=== PATIENT | male | born 1975 | race Caucasian/White ===

== ENCOUNTER 2017-12-24 02:38 | Emergency (ER) | payer SELFPAY ==
[2017-12-24 03:27] LABS: Absolute Lymphocytes (CBC) 2.5 K/uL (0.7-4.9); Absolute Neutrophil 9.3 K/uL (1.8-8.0); Basophils % 0.8 % (0-1.3); Eosinophils % 0.8 % (0-4.4); Hematocrit 45.1 % (39.6-49.0); MCH 30.1 pg (27.0-35.0); MCV 89.8 fL (80-100); MPV 8.5 fL (7.6-11.3); Monocytes % 7.6 % (3.3-12.3); RBC Red Blood Cell Count 5.02 M/uL (4.33-5.43)
[2017-12-24 03:33] LABS: Bicarbonate 22 mEq/L (21-31); Glucose Level 117 mg/dL (65-120); Lipase 26 U/L (22-51); Potassium 3.1 mEq/L (3.6-5.0); Sodium Level 133 mEq/L (135-145)
[2017-12-24 03:36] LABS: Protime INR 1.04
[2017-12-24 03:39] LABS: ALT/SGPT 36 IU/L (10-60); AST/SGOT 23 IU/L (10-42); Albumin 4.3 g/dL (3.2-5.5); Alkaline Phosphatase 79 IU/L (42-121); BUN Blood Urea Nitrogen 11 mg/dL (6-20); Bilirubin Direct 0.1 mg/dL (0-0.2); Bilirubin Total 0.4 mg/dL (0.3-1.2); Creatine Phosphokinase 148 IU/L (22-269); Magnesium 1.6 mg/dL (1.8-2.5); Protein, Total 7.4 g/dL (6.0-8.3)
[2017-12-24 03:40] LABS: Alcohol Serum/Plasma 25 mg/dl
[2017-12-24 03:44] LABS: CKMB Creatine Kinase MB 1.5 ng/ml (0.3-4.0)
[2017-12-24] MEDS ORDERED: POTASSIUM CL SA 10 MEQ TAB PO ONE (03:48)
--- NOTE | 2017-12-24 04:00 | ER ---
Nurse's Notes [facility] Name: Magen Solorzano Age: 42 yrs Sex: Male : 1975 Arrival Date: 12/24/2017 Time: 02:42 Bed 8 Private MD: Diagnosis: Syncope and collapse;Hypokalemia;Low back pain;Hypomagnesemia Presentation: 12/24 02:40 Presenting complaint: Patient states: that he was sitting in and got nausea, the next fc thing he remembers is his friends standing around him. Friend states that he was just "spaced out" and not talking x 10 minutes. She then got him into car to bring him here and he became very nauseated and started to vomit. Pt states that he has been taking a lot of OTC pain medications for his back pain. Also has had nasal and chest congestion that started yesterday,. Transition of care: patient was not received from another setting of care. Onset of symptoms was December 24, 2017 at 02:00. Initial Sepsis Screen: Does the patient meet any 2 criteria? HR > 90 bpm. Yes Does the patient have a suspected source of infection? No. Patient's initial sepsis screen is negative. Care prior to arrival: None. 02:40 Method Of Arrival: Wheelchair 02:40 Acuity: VICKI 3 fc Historical: - Allergies: 03:01 No Known Allergies; fc - Home Meds: 03:01 None [Active]; fc - PMHx: 03:01 Back pain; fc - PSHx: 03:01 None; fc - Immunization history:: Last tetanus immunization: unknown. - Social history:: Smoking status: Patient uses tobacco products, smokes one pack cigarettes per day. Patient/guardian denies using alcohol, street drugs. - Family history:: not pertinent. Screenin:58 Abuse screen: Denies threats or abuse. Nutritional screening: No deficits noted. fc Tuberculosis screening: No symptoms or risk factors identified. Fall Risk None identified. Assessment: 03:00 General: Appears in no apparent distress. comfortable, Behavior is calm, cooperative, ao appropriate for age. Pain: Complains of pain in back Pain does not radiate. Pain currently is 8 out of 10 on a pain scale. Neuro: Level of Consciousness is awake, alert, obeys commands, Oriented to person, place, time, situation, Appropriate for age Moves all extremities. Speech is normal, Facial symmetry appears normal. Cardiovascular: Capillary refill < 3 seconds Patient's skin is warm and dry. Respiratory: Airway is patent Respiratory effort is even, unlabored, Respiratory pattern is regular, symmetrical. GI: Abdomen is round obese, Bowel sounds present X 4 quads. : No signs and/or symptoms were reported regarding the genitourinary system. EENT: No signs and/or symptoms were reported regarding the EENT system. Derm: No signs and/or symptoms reported regarding the dermatologic system. Musculoskeletal: No signs and/or symptoms reported regarding the musculoskeletal system. 04:10 Reassessment: Patient appears in no apparent distress at this time. Patient and/or ao family updated on plan of care and expected duration. Pain level reassessed. Patient is alert, oriented x 3, equal unlabored respirations, skin warm/dry/pink. Patient to be discharge. Patient currently getting Magnesium IV for an hour. Patient to be discharge after magnesium is comlete. 05:10 Reassessment: Patient appears in no apparent distress at this time. Patient and/or ao family updated on plan of care and expected duration. Pain level reassessed. Patient is alert, oriented x 3, equal unlabored respirations, skin warm/dry/pink. Waiting on Mag to be done. 05:37 Reassessment: Dc Instructions given to patient. Patient agrees with the POC and to ao follow up with PCP. Vital Signs: 02:40 BP 120 / 68; Pulse 96; Resp 18; Temp 97.7(O); Pulse Ox 96% on R/A; Weight 99.79 kg (R); Height 6 ft. 0 in. (182.88 cm) (R); Pain 9/10; 03:51 BP 122 / 66; Pulse 94; Resp 16; Pulse Ox 97% on R/A; ao 03:54 BP 124 / 82; ao 04:51 BP 117 / 76; Pulse 84; Resp 20; Pulse Ox 98% on R/A; ao 05:37 BP 114 / 78; Pulse 92; Resp 16; Pulse Ox 96% ; ao 02:40 Body Mass Index 29.84 (99.79 kg, 182.88 cm) ED Course: 02:40 Arm band placed on Patient placed in an exam room, on a stretcher. 02:42 Patient arrived in ED. al2 02:46 Olson, Tejinder, RN is Primary Nurse. ao 02:48 Carl Pereira MD is Attending Physician. [facility] 02:57 Triage completed. 02:58 Patient has correct armband on for positive identification. Bed in low position. Call fc light in reach. Side rails up X2. 02:58 No provider procedures requiring assistance completed. fc 03:00 Inserted saline lock: 18 gauge in right antecubital area, using aseptic technique. cc Blood collected. 03:00 Initial lab(s) drawn, by me, sent to lab. cc 03:10 X-ray completed. Portable x-ray completed in exam room. Patient tolerated procedure kw well. 03:11 XRAY Chest (1 view) In Process Unspecified. EDMS 04:00 Jase Christine MD is Referral Physician. laine 05:39 IV discontinued, intact, bleeding controlled, No redness/swelling at site. Pressure ao dressing applied. 07:31 CT Head Brain wo Cont In Process Unspecified. EDMS Administered Medications: 03:51 Drug: Potassium Chloride 40 mEq Route: PO; ao 04:49 Follow up: Response: No adverse reaction ao 04:10 Drug: Magnesium Sulfate 1 grams Route: IVPB; Infused Over: 1 hrs; Site: right ao antecubital; 05:40 Follow up: IV Status: Completed infusion ao Outcome: 04:00 Discharge ordered by . laine 05:38 Discharged to home ambulatory. ao 05:38 Condition: stable 05:38 Discharge instructions given to patient, Instructed on discharge instructions, follow up and referral plans. Demonstrated understanding of instructions, follow-up care, medications, Prescriptions given X 1. 05:39 Patient left the ED. ao Signatures: Dispatcher [employer] EDWA Carl Pereira MD MD cha Chretien, Felicia, RN RN Nataliia Odonnell Chelsea Tejinder Olson, LEON RN Maria Victoria Granado al2
--- NOTE | 2017-12-24 04:01 | EDPHYS ---
Physician Documentation [facility] Name: Magen Solorzano Age: 42 yrs Sex: Male : 1975 Arrival Date: 12/24/2017 Time: 02:42 Bed 8 Private MD: ED Physician Carl Pereira HPI: 12/24 03:52 This 42 yrs old Male presents to ER via Wheelchair with complaints of laine POSSIBLE SEIZURE. 03:52 seizure like activity. The patient presents after having a single isolated seizure, laine that lasted 20 second(s). Character of seizure(s): Loss of consciousness: the patient did not lose consciousness, Motor activity: generalized, Incontinence: none, Apnea: the patient did not experience apnea, Circulation: the patient did not experience evidence of pulse disturbance. Seizure onset: just prior to arrival. Context: the seizure(s) was witnessed, by a bystander, by family, occurred at work. Seizure Hx: the patient has no previous seizure history. Associated injury: The patient did not suffer any apparent associated injury. Onset: The symptoms/episode began/occurred just prior to arrival. Severity of symptoms: At their worst the symptoms were mild moderate in the emergency department the symptoms have improved markedly. Historical: - Allergies: 03:01 No Known Allergies; fc - Home Meds: 03:01 None [Active]; fc - PMHx: 03:01 Back pain; fc - PSHx: 03:01 None; fc - Immunization history:: Last tetanus immunization: unknown. - Social history:: Smoking status: Patient uses tobacco products, smokes one pack cigarettes per day. Patient/guardian denies using alcohol, street drugs. - Family history:: not pertinent. ROS: 03:52 Constitutional: Negative for fever, chills, and weight loss, Eyes: Negative for injury, laine pain, redness, and discharge, ENT: Negative for injury, pain, and discharge, Neck: Negative for injury, pain, and swelling, Cardiovascular: Negative for chest pain, palpitations, and edema, Respiratory: Negative for shortness of breath, cough, wheezing, and pleuritic chest pain, Abdomen/GI: Negative for abdominal pain, nausea, vomiting, diarrhea, and constipation, Back: Negative for injury and pain, : Negative for injury, bleeding, discharge, and swelling, MS/Extremity: Negative for injury and deformity, Skin: Negative for injury, rash, and discoloration, Psych: Negative for depression, anxiety, suicide ideation, homicidal ideation, and hallucinations, Allergy/Immunology: Negative for hives, rash, and allergies, Endocrine: Negative for neck swelling, polydipsia, polyuria, polyphagia, and marked weight changes, Hematologic/Lymphatic: Negative for swollen nodes, abnormal bleeding, and unusual bruising. 03:52 Neuro: Positive for seizure activity, weakness. Exam: 03:52 Constitutional: This is a well developed, well nourished patient who is awake, alert, laine and in no acute distress. Head/Face: Normocephalic, atraumatic. Eyes: Pupils equal round and reactive to light, extra-ocular motions intact. Lids and lashes normal. Conjunctiva and sclera are non-icteric and not injected. Cornea within normal limits. Periorbital areas with no swelling, redness, or edema. ENT: Nares patent. No nasal discharge, no septal abnormalities noted. Tympanic membranes are normal and external auditory canals are clear. Oropharynx with no redness, swelling, or masses, exudates, or evidence of obstruction, uvula midline. Mucous membranes moist. Neck: Trachea midline, no thyromegaly or masses palpated, and no cervical lymphadenopathy. Supple, full range of motion without nuchal rigidity, or vertebral point tenderness. No Meningismus. Chest/axilla: Normal chest wall appearance and motion. Nontender with no deformity. No lesions are appreciated. Cardiovascular: Regular rate and rhythm with a normal S1 and S2. No gallops, murmurs, or rubs. Normal PMI, no JVD. No pulse deficits. Respiratory: Lungs have equal breath sounds bilaterally, clear to auscultation and percussion. No rales, rhonchi or wheezes noted. No increased work of breathing, no retractions or nasal flaring. Abdomen/GI: Soft, non-tender, with normal bowel sounds. No distension or tympany. No guarding or rebound. No evidence of tenderness throughout. Back: No spinal tenderness. No costovertebral tenderness. Full range of motion. Male : Normal genitalia with no discharge or lesions. Skin: Warm, dry with normal turgor. Normal color with no rashes, no lesions, and no evidence of cellulitis. MS/ Extremity: Pulses equal, no cyanosis. Neurovascular intact. Full, normal range of motion. Neuro: Awake and alert, GCS 15, oriented to person, place, time, and situation. Cranial nerves II-XII grossly intact. Motor strength 5/5 in all extremities. Sensory grossly intact. Cerebellar exam normal. Normal gait. Psych: Awake, alert, with orientation to person, place and time. Behavior, mood, and affect are within normal limits. 03:52 Musculoskeletal/extremity: DVT Exam: No signs of deep vein thrombosis. no pain, no laine swelling, no tenderness, negative Homans' sign noted on exam, no appreciated bluish discoloration, no erythema, no increased warmth. Vital Signs: 02:40 BP 120 / 68; Pulse 96; Resp 18; Temp 97.7(O); Pulse Ox 96% on R/A; Weight 99.79 kg (R); fc Height 6 ft. 0 in. (182.88 cm) (R); Pain 9/10; 03:51 BP 122 / 66; Pulse 94; Resp 16; Pulse Ox 97% on R/A; ao 03:54 BP 124 / 82; ao 04:51 BP 117 / 76; Pulse 84; Resp 20; Pulse Ox 98% on R/A; ao 05:37 BP 114 / 78; Pulse 92; Resp 16; Pulse Ox 96% ; ao 02:40 Body Mass Index 29.84 (99.79 kg, 182.88 cm) MDM: 02:48 Patient medically screened. [facility] 03:52 Data reviewed: vital signs, nurses notes, lab test result(s), EKG, radiologic studies, [facility] CT scan, plain films. 12/24 02:49 Order name: Basic Metabolic Panel; Complete Time: 05:25 laine 12/24 02:49 Order name: BNP; Complete Time: 03:58 [facility] 12/24 02:49 Order name: CBC with Diff; Complete Time: 03:38 12/24 02:49 Order name: Ckmb; Complete Time: 05:25 12/24 02:49 Order name: CPK; Complete Time: 05:25 laine 12/24 02:49 Order name: LFT's; Complete Time: 05:25 12/24 02:49 Order name: Magnesium; Complete Time: 05:25 12/24 02:49 Order name: PT-INR; Complete Time: 03:58 [facility] 12/24 02:49 Order name: Ptt, Activated; Complete Time: 03:58 [facility] 12/24 02:49 Order name: Troponin (emerg Dept Use Only); Complete Time: 03:58 [facility] 12/24 02:49 Order name: Acetaminophen; Complete Time: 05:25 [facility] 12/24 02:49 Order name: ETOH Level; Complete Time: 05:25 [facility] 12/24 02:49 Order name: Salicylate; Complete Time: 05:25 [facility] 12/24 02:49 Order name: Urine Drug Screen 12/24 02:49 Order name: XRAY Chest (1 view) 12/24 02:49 Order name: EKG; Complete Time: 02:50 [facility] 12/24 02:49 Order name: Cardiac monitoring; Complete Time: 03:06 [facility] 12/24 02:49 Order name: EKG - Nurse/Tech; Complete Time: 03:06 [facility] 12/24 02:49 Order name: IV Saline Lock; Complete Time: 03:06 [facility] 12/24 02:49 Order name: Labs collected and sent; Complete Time: 03:06 [facility] 12/24 02:49 Order name: O2 Per Protocol; Complete Time: 03:06 [facility] 12/24 02:49 Order name: O2 Sat Monitoring; Complete Time: 03:06 [facility] 12/24 02:49 Order name: Urine Dipstick-Ancillary (obtain specimen); Complete Time: 05:12 [facility] 12/24 02:49 Order name: Seizure Precautions; Complete Time: 02:56 [facility] 12/24 02:49 Order name: CT Head Brain wo Cont 12/24 02:49 Order name: Lipase; Complete Time: 05:25 [facility] 12/24 05:13 Order name: Urine Dipstick--Ancillary (enter results) em1 Administered Medications: 03:51 Drug: Potassium Chloride 40 mEq Route: PO; ao 04:49 Follow up: Response: No adverse reaction ao 04:10 Drug: Magnesium Sulfate 1 grams Route: IVPB; Infused Over: 1 hrs; Site: right ao antecubital; 05:40 Follow up: IV Status: Completed infusion ao Disposition: 12/24/17 04:00 Discharged to Home. Impression: Syncope and collapse, Hypokalemia, Low back pain, Hypomagnesemia. - Condition is Stable. - Discharge Instructions: Back Pain, Adult, Chronic Back Pain, Musculoskeletal Pain, Near-Syncope, Syncope, Weakness, Back Injury Prevention, [id number], Near-Syncope, [id number], Back Pain, Adult, Uvik-ub-[id number], Syncope, Pqja-[id number], Weakness, [id number]. - Prescriptions for Ibuprofen 600 mg Oral Tablet - take 1 tablet by ORAL route every 8 hours As needed take with food; 45 tablet. - Medication Reconciliation Form, Thank You Letter, Antibiotic Education, Prescription Opioid Use form. - Follow up: Private Physician; When: 2 - 3 days; Reason: Recheck today's complaints, Continuance of care, Re-evaluation by your physician. Follow up: Jase Christine; When: 2 - 3 days; Reason: Recheck today's complaints, Continuance of care, Re-evaluation by your physician. - Problem is new. - Symptoms have improved. Signatures: Dispatcher [employer] Carl Friend MD MD cha Chretien, Felicia, RN RN Tejinder Resendiz RN RN ao
[2017-12-24] MEDS ORDERED: MAGNESIUM SULFATE 1 gm IVPB 1 GM/100 ML BAG IV ONE (04:03)
[2017-12-24 04:20] LABS: Salicylates Level < 4.0 mg/dl (<30)
[2017-12-24 05:28] LABS: Barbiturates NEGATIVE; Benzodiazepines NEGATIVE; Cocaine NEGATIVE; METHAMPHETAM NEGATIVE; Opiates NEGATIVE; Phencyclidine NEGATIVE; THC Cannibis NEGATIVE
[2017-12-24 05:41] LABS: Urine Blood NEGATIVE (NEG); Urine Glucose NEGATIVE (NEG); Urine Protein 1+ (NEG); Urine Specific Gravity >1.030 (1.005-1.030); Urine pH 5.5 (5.0-7.0)
[2017-12-24 05:44] VITALS: TEMP 97.7
[2017-12-24 05:49] VITALS: BP 114/78; O2SAT 96
--- NOTE | 2017-12-24 08:19 | RAD REPORT ---
EXAM DESCRIPTION: CT - Head Brain Wo Cont - 12/24/2017 7:31 am CLINICAL HISTORY: Altered consciousness. COMPARISON: None. TECHNIQUE: All CT scans are performed using dose optimization technique as appropriate and may inclu de automated exposure control or mA/KV adjustment according to patient size. FINDINGS: No intracranial hemorrhage, hydrocephalus or extra-axial fluid collection.No areas of brai n edema or evidence of midline shift. The paranasal sinuses and mastoids are clear. The calvarium is intact. IMPRESSION: No acute intracranial abnormality.
--- NOTE | 2017-12-24 08:58 | RAD REPORT ---
EXAM DESCRIPTION: RAD - Chest Single View - 12/24/2017 3:13 am CLINICAL HISTORY: Chest pain, seizure. COMPARISON: 11/19/2013 FINDINGS: Portable technique limits examination quality. The lungs are grossly clear. The heart is normal in size. No displaced fractures. IMPRESSION: No acute intrathoracic process suspected.
--- NOTE | 2017-12-24 15:40 | EKG ---
Test Date: 2017-12-24 Test Time: 03:01:59 Care Taker: JENNIFER MEASUREMENT RESULTS: Intervals: Rate: 92 NV: 170 QRSD: 92 QT: 360 QTc: 445 Corry: P: 48 NV: 170 QRS: 31 T: 49 INTERPRETIVE STATEMENTS: Normal sinus rhythm Normal ECG Compared to ECG 11/20/2013 11:04:53 No significant changes Electronically Signed On 12-24-17 15:37:50 CDT by Alin Oswald
== END 2017-12-24 05:39 | disposition home or self-care (01) ==
LOC: ER 02:38
DX: E87.6 Hypokalemia (principal); E83.42 Hypomagnesemia; M54.5 Low back pain; F17.210 Nicotine dependence, cigarettes, uncomplicated
CPT/HCPCS: 36415; 70450; 71045; 80048; 80076; 80307; 80320; 80329; 81003; 82550; 82553; 83690; 83735; 83880; 84484; 85025; 85610; 85730; 93005; 96365; 99284; J3475